=== PATIENT | male | born 2000 | race Caucasian/White ===

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

== ENCOUNTER 2022-09-16 13:32 | Emergency (ER) | payer BC ==
[2022-09-16] MEDS ORDERED: Ondansetron 4 MG Tab.DIS PO ONE (13:56)
[2022-09-16] MEDS ORDERED: Sodium Chloride 0.9% 1,000 ML IV ONE (14:11)
[2022-09-16] MEDS ORDERED: Ondansetron 4 MG/2 ML SDV IVPUSH ONE (14:14)
[2022-09-16 15:08] LABS: CARBON DIOXIDE,CO2 27.6 mmol/L (21.0-32.0); POTASSIUM,K 4.2 mmol/L (3.5-5.1)
[2022-09-16] MEDS ORDERED: Ketorolac 30 MG/ML SDV IVPUSH ONE (15:25)
[2022-09-16 16:02] VITALS: BP 134/87; PULSE 77
== END 2022-09-16 15:51 | disposition home or self-care (01) ==
LOC: MW.ED 13:32
DX: S06.0X0A Concussion without loss of consciousness, initial encounter (principal); Z72.0 Tobacco use; W00.0XXA Fall on same level due to ice and snow, initial encounter
CPT/HCPCS: 70450; 80053; 83690; 85025; 96361; 96374; 99284; J2405; J7030

== ENCOUNTER 2023-03-22 05:42 | Emergency (ER) | payer BC ==
[2023-03-22] MEDS ORDERED: Tetracaine HCl/PF 0.5% 4 ML Bottle EYEBOTH STA (05:44)
[2023-03-22] MEDS ORDERED: Erythromycin Base 0.5% Ophth Oint 1 GM Tube EYEBOTH ONE (05:54)
[2023-03-22] MEDS ORDERED: Acetaminophen/oxyCODONE 325-5 MG Tab PO ONE (05:55)
[2023-03-22] MEDS ORDERED: Ibuprofen 600 MG Tab PO ONE (05:55)
[2023-03-22 06:15] VITALS: BP 143/74; PULSE 70
== END 2023-03-22 06:15 | disposition home or self-care (01) ==
LOC: MW.ED 05:42
DX: H16.8 Other keratitis (principal); J45.909 Unspecified asthma, uncomplicated
CPT/HCPCS: 99283; A9270; 99282; J3490

== ENCOUNTER 2024-05-13 11:58 | Inpatient (IN) | payer BC ==
[2024-05-13 12:35] LABS: BASOPHILS ABSOLUTE AUTO 0.05 K/uL (0.00-0.20); BASOPHILS PERCENT AUTO 0.5 % (0.0-1.0); HEMATOCRIT 43.7 % (42.0-52.0); HEMOGLOBIN 14.9 g/dL (14.0-18.0); IMMATURE GRAN ABSOLUTE AUTO 0.04 K/uL (0.00-0.05); IMMATURE GRAN PERCENT AUTO 0.4 % (0.0-0.4); LYMPHOCYTES ABSOLUTE AUTO 1.82 K/uL (1.00-4.80); LYMPHOCYTES PERCENT AUTO 17.4 % (24.0-44.0); MEAN CORPUSCULAR HEMOGLOBIN 29.6 pg (28.0-32.0); MEAN CORPUSCULAR HGB CONC 34.1 g/dL (32.0-36.0); MEAN CORPUSCULAR VOLUME 86.9 fL (83.0-99.0); MEAN PLATELET VOLUME 8.9 fL (9.4-12.4); MONOCYTES ABSOLUTE AUTO 0.96 K/uL (0.00-0.80); MONOCYTES PERCENT AUTO 9.2 % (0.0-8.0); NEUTROPHILS ABSOLUTE AUTO 7.48 K/uL (1.80-7.70); NEUTROPHILS PERCENT AUTO 71.5 % (41.0-71.0); PLATELET COUNT,PLT 197 K/uL (150-400); RED BLOOD CELL COUNT 5.03 M/uL (4.52-5.90); WHITE BLOOD CELL COUNT,WBC 10.45 K/uL (3.9-11.3)
[2024-05-13] MEDS: Ketorolac 30 MG/ML SDV IVPUSH ONE (12:39)
[2024-05-13] MEDS: Sodium Chloride 0.9% 1,000 ML IV ONE (12:39)
[2024-05-13] MEDS: VANCOmycin 2 GM/400 ML 2 GM in Premix Bag 1 BAG IV ONE (13:06)
[2024-05-13 13:11] LABS: A/G RATIO 1.3 (0.9-1.6); ALBUMIN 3.8 g/dL (3.4-5.0); BILIRUBIN TOTAL 0.3 mg/dL (0.2-1.0); CALCIUM 9.2 mg/dL (8.5-10.1); CARBON DIOXIDE,CO2 27.3 mmol/L (21.0-32.0); CREATININE 1.3 mg/dL (0.8-1.3); EST CRCL DRUG DOSING (CG) 107.57 mL/min; MAGNESIUM 1.8 mg/dL (1.8-2.4); POTASSIUM,K 4.4 mmol/L (3.5-5.1); PROTEIN TOTAL,TP 6.8 g/dL (6.4-8.2)
[2024-05-13] MEDS: Lidocaine 1% 5 ML VIAL INJECT ONE (13:41)
[2024-05-13] MEDS: Piperacillin/Tazobactam 3.375 GM in Sodium Chloride 0.9% 100 ML IV ONE (14:37)
[2024-05-13 16:23] LABS: HEMOGLOBIN A1C 5.3 %
[2024-05-13] MEDS: Piperacillin/Tazobactam 4.5 GM in Sodium Chloride 0.9% 100 ML IV SCH (19:34)
[2024-05-13] MEDS: Acetaminophen 325 MG Tab PO PRN (19:57)
[2024-05-14 06:18] LABS: BASOPHILS ABSOLUTE AUTO 0.04 K/uL (0.00-0.20); BASOPHILS PERCENT AUTO 0.5 % (0.0-1.0); EOSINOPHILS ABSOLUTE AUTO 0.19 K/uL (0.00-0.45); EOSINOPHILS PERCENT AUTO 2.5 % (0.0-6.0); HEMATOCRIT 41.9 % (42.0-52.0); HEMOGLOBIN 13.7 g/dL (14.0-18.0); IMMATURE GRAN ABSOLUTE AUTO 0.03 K/uL (0.00-0.05); IMMATURE GRAN PERCENT AUTO 0.4 % (0.0-0.4); LYMPHOCYTES ABSOLUTE AUTO 1.16 K/uL (1.00-4.80); MEAN CORPUSCULAR HEMOGLOBIN 29.5 pg (28.0-32.0); MEAN CORPUSCULAR HGB CONC 32.7 g/dL (32.0-36.0); MEAN CORPUSCULAR VOLUME 90.3 fL (83.0-99.0); MEAN PLATELET VOLUME 8.9 fL (9.4-12.4); MONOCYTES ABSOLUTE AUTO 0.68 K/uL (0.00-0.80); MONOCYTES PERCENT AUTO 8.8 % (0.0-8.0); NEUTROPHILS ABSOLUTE AUTO 5.63 K/uL (1.80-7.70); NEUTROPHILS PERCENT AUTO 72.8 % (41.0-71.0); PLATELET COUNT,PLT 157 K/uL (150-400); RED BLOOD CELL COUNT 4.64 M/uL (4.52-5.90); WHITE BLOOD CELL COUNT,WBC 7.73 K/uL (3.9-11.3)
[2024-05-14 06:43] LABS: ALBUMIN 2.9 g/dL (3.4-5.0); BILIRUBIN TOTAL 0.3 mg/dL (0.2-1.0); CALCIUM 8.4 mg/dL (8.5-10.1); CARBON DIOXIDE,CO2 30.7 mmol/L (21.0-32.0); CREATININE 1.3 mg/dL (0.8-1.3); EST CRCL DRUG DOSING (CG) 107.57 mL/min; POTASSIUM,K 4.1 mmol/L (3.5-5.1); PROTEIN TOTAL,TP 5.9 g/dL (6.4-8.2)
[2024-05-14] MEDS: Escitalopram 10 MG Tab PO SCH (08:20)
[2024-05-14] MEDS: Sodium Chloride 0.9% 1,000 ML IV SCH (10:13)
[2024-05-14] MEDS: VANCOmycin 1.5 GM/300 ML 1.5 GM in Premix Bag 1 BAG IV SCH (10:13)
[2024-05-15 06:53] LABS: BASOPHILS ABSOLUTE AUTO 0.04 K/uL (0.00-0.20); BASOPHILS PERCENT AUTO 0.5 % (0.0-1.0); EOSINOPHILS ABSOLUTE AUTO 0.24 K/uL (0.00-0.45); EOSINOPHILS PERCENT AUTO 3.1 % (0.0-6.0); HEMATOCRIT 42.2 % (42.0-52.0); HEMOGLOBIN 13.8 g/dL (14.0-18.0); IMMATURE GRAN ABSOLUTE AUTO 0.06 K/uL (0.00-0.05); IMMATURE GRAN PERCENT AUTO 0.8 % (0.0-0.4); LYMPHOCYTES ABSOLUTE AUTO 1.11 K/uL (1.00-4.80); LYMPHOCYTES PERCENT AUTO 14.6 % (24.0-44.0); MEAN CORPUSCULAR HEMOGLOBIN 29.9 pg (28.0-32.0); MEAN CORPUSCULAR HGB CONC 32.7 g/dL (32.0-36.0); MEAN CORPUSCULAR VOLUME 91.5 fL (83.0-99.0); MEAN PLATELET VOLUME 9.2 fL (9.4-12.4); MONOCYTES ABSOLUTE AUTO 0.74 K/uL (0.00-0.80); MONOCYTES PERCENT AUTO 9.7 % (0.0-8.0); NEUTROPHILS ABSOLUTE AUTO 5.43 K/uL (1.80-7.70); NEUTROPHILS PERCENT AUTO 71.3 % (41.0-71.0); PLATELET COUNT,PLT 171 K/uL (150-400); RED BLOOD CELL COUNT 4.61 M/uL (4.52-5.90); WHITE BLOOD CELL COUNT,WBC 7.62 K/uL (3.9-11.3)
[2024-05-15 07:22] LABS: A/G RATIO 0.9 (0.9-1.6); ALBUMIN 2.9 g/dL (3.4-5.0); BILIRUBIN TOTAL 0.2 mg/dL (0.2-1.0); CALCIUM 8.8 mg/dL (8.5-10.1); CARBON DIOXIDE,CO2 30.8 mmol/L (21.0-32.0); EST CRCL DRUG DOSING (CG) 139.84 mL/min; POTASSIUM,K 4.2 mmol/L (3.5-5.1)
[2024-05-15] MEDS: VANCOmycin 1.5 GM/300 ML 1.5 GM in Premix Bag 1 BAG IV SCH (08:25)
[2024-05-15 11:21] VITALS: BP 125/66; PULSE 75
== END 2024-05-15 11:10 | disposition home or self-care (01) | DRG 383 ==
LOC: MW.ED 11:58 → MW.MS 14:28 → OBSVTOIN 05-14 09:24 → MW.MS 05-14 15:17
PROVIDERS: ADMIT Family Medicine; ATTEND Family Medicine
PROC: 0X950ZZ Drainage of Left Axilla, Open Approach (ICD-10-PCS; principal; 2024-05-14)
DX: L02.412 Cutaneous abscess of left axilla (principal); L03.111 Cellulitis of right axilla; L03.112 Cellulitis of left axilla; L02.411 Cutaneous abscess of right axilla; R55 Syncope and collapse; J45.909 Unspecified asthma, uncomplicated; Z91.02 Food additives allergy status; Z79.899 Other long term (current) drug therapy; Z90.89 Acquired absence of other organs; Z98.890 Other specified postprocedural states
CPT/HCPCS: 10060; 36415; 80053; 80202; 82947; 83036; 83735; 84484; 85025; 87641; 93005; 93010; 96365; 96366; 96368; 96375; 99284; 99284-25; A9270-GY; G0378; J1885; J2543; J3370; J3372; J3490; J7030; J7050